=== PATIENT | male | born 1965 | race African-American/Black ===

== ENCOUNTER 2024-09-30 16:27 | Emergency (ER) | payer BC, SELFPAY ==
[2024-09-30 16:58] VITALS: BP 165/98
--- NOTE | 2024-09-30 17:01 | ED.MUSCINJ ---
HPI-Injury
<Tj Lagos PA-C - Last Filed: 09/30/24 17:01>
General
Chief Complaint: Musculo-Skeletal Complaint
Time Seen by Provider: 09/30/24 17:24
<Miguel Gonzalez DO - Last Filed: 09/30/24 18:46>
History of Present Illness-Injury
Initial Injury comments:
TIME OF INITIAL ENCOUNTER: 5:30 PM
HPI: Patient presents with worsening left knee pain over the last several years that dramatically worsened over the past week or so. He also has some intermittent pain to the right knee but not currently. He has had no fevers. At times, the pain
actually improves when he was walking.
EXAM:
GENERAL: Well appearing in no distress
HEENT: Moist oral mucosa
NEUROLOGIC: Excellent strength all extremities, no obvious coordination deficits
PSYCHIATRIC: Appropriate mental status, normal insight and judgement
EXTREMITIES: The patient has mild joint effusion at the left knee, there is no evidence for septic joint, fairly good active range of motion, negative Avelina test, borderline positive anterior drawer testing, no patellar or quadriceps tendon
tenderness
SKIN: No rash, no lesions
NUMBER AND COMPLEXITY OF PROBLEMS ADDRESSED AT THE ENCOUNTER
� Chronic conditions affecting care: High blood pressure
� Acute Exacerbation and/or Progression of Chronic Illness: This is an acute exacerbation of a chronic problem
� Differential Diagnosis includes: Internal derangement of left knee, joint effusion, osteoarthritis
AMOUNT AND/OR COMPLEXITY OF DATA TO BE REVIEWED AND ANALYZED
� I performed an independent evaluation of and my interpretation is:
EKG:
CT:
X-rays: X-ray shows mild tricompartment osteoarthritis
Laboratory Studies:
Other:
� Review of other/old records: I looked in [employer] but there is no old labs or imaging studies available for review
� Clinical information was obtained by an independent historian: None needed
� Prescriptions/Medications Considered but not given:
� Further testing considered but not performed:
RISK OF COMPLICATIONS AND/OR MORBIDITY OR MORTALITY OF PATIENT MANAGEMENT
� Social determinants of health affecting care: Lives at home
� Discussion with other providers: None needed
� Escalation of care including admission/observation vs risk of discharge considered: Will give a dose of Toradol. Discussed radiology report with patient. He is to follow-up with Ortho patient declines knee immobilizer or
crutches.
ANY OTHER UPDATES:
ED Provider Triage
<Tj Lagos PA-C - Last Filed: 09/30/24 17:01>
-
Patient seen by provider in Triage?: Seen in Triage
Attestation: A medical screening examination has been initiated by a qualified medical provider. Based on the assessment performed at this time, it has been determined that an emergent medical condition may exist and the patient has been informed
that further medical evaluation and possible additional diagnostic testing may be needed.
HPI: 59-year-old male with history of hypertension presents complaining of left knee pain worsening over the past several days but has had intermittent discomfort over the past year. He thinks he may have a meniscal tear. He admits to catching and
giving way and locking in place. He also notes swelling. No recent injury no fever
X-rays left knee pending.
GENERAL: Alert , in no apparent distress
EYE: No visual abnormalities.
NECK: Trachea midline
ENT: No visible abnormalities.
LUNGS: No acute respiratory distress
NEUROLOGICAL: Alert and oriented
SKIN: Skin intact. No visible changes.
MUSCULOSKELETAL: Moving extremities normally
PSYCH: Normal and appropriate interaction.
This is a medical evaluation conducted in person to initiate diagnostic evaluation and provide initial therapeutics. Please see further documentation by the treating clinician.
Phy Exam
<Miguel Gonzalez DO - Last Filed: 09/30/24 18:46>
Physical Exam
Physical Exam:
See HPI
Injury Course
<Tj Lagos PA-C - Last Filed: 09/30/24 17:01>
Orders/Labs/Results
Orders:
Orders
09/30/24 16:59
CR Knee - Left 4 Or More View* Urgent
Comment:
Reason For Exam: pain in knee
09/30/24 18:39
Ketorolac [Toradol] 30 mg IM NOW STA
<Miguel Gonzalez DO - Last Filed: 09/30/24 18:46>
Orders/Labs/Results
Orders:
Orders
09/30/24 16:59
CR Knee - Left 4 Or More View* Urgent
Comment:
Reason For Exam: pain in knee
09/30/24 18:39
Ketorolac [Toradol] 30 mg IM NOW STA
<Miguel Gonzalez DO - Last Filed: 09/30/24 18:46>
*Critical Care Note
Total Time (30-74mins, 75-104mins- exclusive of procedures): Not Applicable
ED Attending Note
<Tj Lagos PA-C - Last Filed: 09/30/24 17:01>
-
Portions of this chart may have been created with voice recognition software.� Occasional wrong word or��sound alike� substitutions may have occurred due to the inherent limitations of voice recognition software.
Discharge Plan
Departure
Patient Disposition: Home (Routine Discharge)
Date of Disposition: 09/30/24
Time of Disposition: 18:40
Patient with high blood pressure during this ER visit?: Yes
Discharge Problem:
Knee osteoarthritis
Instructions: Knee Pain (DC)
Referrals:
Ricky Ohara CRNP [Family Provider] -
Manjinder Lr MD [Active] - Follow up in 2-3 days
Activity Restrictions/Additional Instructions:
Your x-ray shows signs of osteoarthritis. I recommend that you follow-up with an orthopedic such as Dr. Lr.
Interventions
Interventions:
*Risk Screen - Suicide Last Done: 09/30/24 16:58
*General Assessment Last Done: 09/30/24 16:58
*Neglect/Abuse Screening Last Done: 09/30/24 16:58
*ED COVID-19 Vaccine History Last Done: 09/30/24 16:58
ED-Musculoskeletal Assessment Last Done: 09/30/24 18:23
Discharge Date and Time
Print Language: SETSWA[place]
[2024-09-30] MEDS: TORADOL 30 MG IM (18:52)
== END 2024-09-30 18:58 | disposition home or self-care (01) ==
LOC: EMR 16:27
PROVIDERS: EMERGENCY PHYSICIAN Emergency Medicine; FAMILY PHYSICIAN Nurse Practitioner Family
DX: M17.12 Unilateral primary osteoarthritis, left knee (principal); I10 Essential (primary) hypertension
CPT/HCPCS: 99283; 96372; 73564